=== PATIENT | male | born 1965 | race Caucasian/White ===

== ENCOUNTER 2016-10-25 22:39 | Inpatient (IN) | payer MEDICARE, MEDICAID ==
[~2016-10-25] VITALS: Ht 167.6 cm; Wt 89.0 kg
[~2016-10-25 22:39] MED LIST: METF500T4 PO; OLAN7.5T2 PO
[2016-10-25] MEDS ORDERED: ZIPR80CA2 PO (23:04)
[2016-10-25] MEDS ORDERED: ZOLPIDEM TARTRATE 10 MG TABLET PO PRN (23:30)
[2016-10-25] MEDS ORDERED: LORazepam 2 MG TABLET PO PRN (23:30)
[2016-10-25] MEDS ORDERED: HALOPERIDOL 5 MG TABLET PO PRN (23:30)
[2016-10-25 23:38] LABS: BASOPHILS % (AUTO) 0.4 % (0.0-2.0); EOSINOPHILS % (AUTO) 5.9 % (1.0-6.0); HEMATOCRIT 42.5 % (41-53); HEMOGLOBIN 13.8 g/dL (13.5-17.5); LYMPHOCYTES # (AUTO) 2.7 K/uL (1.0-4.8); LYMPHOCYTES % (AUTO) 29.1 % (22.0-44.0); MEAN CORPUSCULAR HEMOGLOBIN 29.1 pg (26.0-34.0); MEAN CORPUSCULAR HGB CONC 32.5 G/dL (31.0-37.0); MEAN CORPUSCULAR VOLUME 90 fL (80-100); MONOCYTES # (AUTO) 0.8 K/uL (0.1-1.0); MONOCYTES % (AUTO) 8.6 % (2.0-9.0); NEUTROPHILS # (AUTO) 5.1 K/uL (1.8-7.7); PLATELET COUNT (AUTO) 265 K/uL (150-450); RED BLOOD CELL COUNT(AUTO) 4.74 MIL/uL (4.50-5.90); RED CELL DISTRIBUTION WIDTH 13.1 % (11.5-14.5); WHITE BLOOD COUNT (AUTO) 9.2 K/uL (4.5-11.0)
[2016-10-25 23:45] LABS: ANION GAP 10 mmol/L (8-16); CALCIUM, TOTAL 8.9 mg/dL (8.8-10.5); CARBON DIOXIDE 27 mmol/L (22-29); CHLORIDE 103 mmol/L (98-107); CREATININE 0.96 mg/dL (0.60-1.30); GLOMERULAR FILTR. RATE CALC > 60 mL/min (>60); SODIUM SERUM 140 mmol/L (136-145); UREA NITROGEN, BLOOD 10 mg/dL (7-18)
[2016-10-25 23:51] LABS: ALANINE AMINOTRANSFERASE 29 U/L (12-78); ASPARTATE AMINOTRANSFERASE 15 U/L (15-37); BILIRUBIN,TOTAL 0.3 mg/dL (0.1-1.0); TOTAL PROTEIN, SERUM 7.9 g/dL (6.4-8.2)
[2016-10-26 02:02] VITALS: BP 144/91
[2016-10-26] MEDS ORDERED: -PHARMACY VACCINE NOTE- MISC ONE ×2 (03:45)
[2016-10-26 03:46] LABS: APPEARANCE,URINE CLEAR (CLEAR); GLUCOSE, URINE (UA) >=1000 mg/dL (NEGATIVE); KETONES,URINE NEGATIVE (NEGATIVE); LEUKOCYTE ESTERASE ,URINE NEGATIVE (NEGATIVE); OCCULT BLOOD,URINE NEGATIVE (NEGATIVE); PROTEIN,URINE NEGATIVE (NEGATIVE)
[2016-10-26 03:47] LABS: ADD UA MICROSCOPIC YES
[2016-10-26 04:26] LABS: RBC,URINE 0-2 /HPF (0-2); SQUAMOUS EPITHELIAL CELL,UR Rare /LPF (None Seen); WBC,URINE 0-2 /HPF (0-5)
[2016-10-26] MEDS ORDERED: DEXTROSE 50%-WATER 25 GM/50 ML SYRINGE IVP PRN (07:30)
[2016-10-26 07:32] LABS: GLUCOSE,POINT OF CARE 139 MG/DL (70-110)
[2016-10-26 08:23] VITALS: BP 110/75
[2016-10-26] MEDS: MetFORMIN HCL 500 MG TABLET PO SCH ×2 (09:20→17:17)
[2016-10-26] MEDS ORDERED: OLAN10TA3 PO (11:01)
[2016-10-26] MEDS: OLANZapine 10 MG TABLET PO SCH ×2 (11:28→20:29)
[2016-10-26 16:02] VITALS: BP 136/74
[2016-10-26 17:22] LABS: GLUCOSE,POINT OF CARE 137 MG/DL (70-110)
[2016-10-26 21:32] LABS: GLUCOSE,POINT OF CARE 182 MG/DL (70-110)
[2016-10-26] MEDS: INSULIN ASPART 100 UNITS/ML SQ PRN (22:22)
[2016-10-26] MEDS ORDERED: IBUPROFEN 400 MG TABLET PO PRN (22:30)
[2016-10-26] MEDS ORDERED: ACETAMINOPHEN 325 MG TABLET PO PRN (22:30)
[2016-10-27 06:17] LABS: GLUCOSE,POINT OF CARE 159 MG/DL (70-110)
[2016-10-27 06:23] LABS: ALANINE AMINOTRANSFERASE 24 U/L (12-78); ALBUMIN 3.6 g/dL (3.4-5.0); ANION GAP 6 mmol/L (8-16); ASPARTATE AMINOTRANSFERASE 13 U/L (15-37); BILIRUBIN,TOTAL 0.3 mg/dL (0.1-1.0); CALCIUM, TOTAL 8.7 mg/dL (8.8-10.5); CARBON DIOXIDE 29 mmol/L (22-29); CHLORIDE 104 mmol/L (98-107); CHOL/HDL RATIO 3.8 (4.2-7.3); CREATININE 0.88 mg/dL (0.60-1.30); GLOMERULAR FILTR. RATE CALC > 60 mL/min (>60); POTASSIUM 4.1 mmol/L (3.5-5.1); SODIUM SERUM 139 mmol/L (136-145); TOTAL PROTEIN, SERUM 7.3 g/dL (6.4-8.2); UREA NITROGEN, BLOOD 12 mg/dL (7-18)
[2016-10-27 06:29] LABS: HEMOGLOBIN A1C 6.9 % (4.5-6.2)
[2016-10-27] MEDS: MetFORMIN HCL 500 MG TABLET PO SCH ×2 (07:00→17:44)
[2016-10-27] MEDS: INSULIN ASPART 100 UNITS/ML SQ PRN ×3 (07:06→21:19)
[2016-10-27] MEDS: OLANZapine 10 MG TABLET PO SCH ×2 (08:16→21:01)
[2016-10-27 09:32] VITALS: BP 126/93
[2016-10-27 12:37] LABS: GLUCOSE,POINT OF CARE 159 MG/DL (70-110)
[2016-10-27 16:16] VITALS: BP 126/79
[2016-10-27 17:12] LABS: GLUCOSE,POINT OF CARE 130 MG/DL (70-110)
[2016-10-27 21:07] LABS: GLUCOSE COMMENT 1 Received Meds; GLUCOSE,POINT OF CARE 144 MG/DL (70-110)
[2016-10-28 06:41] LABS: GLUCOSE,POINT OF CARE 119 MG/DL (70-110)
[2016-10-28] MEDS: MetFORMIN HCL 500 MG TABLET PO SCH ×2 (06:58→17:23)
[2016-10-28] MEDS: INSULIN ASPART 100 UNITS/ML SQ PRN ×3 (07:04→22:29)
[2016-10-28 08:09] VITALS: BP 132/85
[2016-10-28] MEDS: OLANZapine 10 MG TABLET PO SCH ×2 (08:18→20:57)
[2016-10-28 11:52] LABS: GLUCOSE,POINT OF CARE 135 MG/DL (70-110)
[2016-10-28 16:00] VITALS: BP 130/73
[2016-10-28 16:26] LABS: GLUCOSE,POINT OF CARE 181 MG/DL (70-110)
[2016-10-28 21:02] LABS: GLUCOSE,POINT OF CARE 153 MG/DL (70-110)
[2016-10-29 05:53] LABS: GLUCOSE,POINT OF CARE 136 MG/DL (70-110)
[2016-10-29] MEDS: MetFORMIN HCL 500 MG TABLET PO SCH ×2 (07:01→17:06)
[2016-10-29] MEDS: INSULIN ASPART 100 UNITS/ML SQ PRN ×3 (07:07→17:20)
[2016-10-29 08:30] VITALS: BP 131/90
[2016-10-29] MEDS: OLANZapine 10 MG TABLET PO SCH ×2 (09:37→21:16)
[2016-10-29 13:06] LABS: GLUCOSE,POINT OF CARE 207 MG/DL (70-110)
[2016-10-29 17:07] LABS: GLUCOSE COMMENT 1 Received Meds; GLUCOSE,POINT OF CARE 154 MG/DL (70-110)
[2016-10-29 17:13] VITALS: BP 119/79
[2016-10-30 05:46] LABS: GLUCOSE,POINT OF CARE 137 MG/DL (70-110)
[2016-10-30] MEDS: MetFORMIN HCL 500 MG TABLET PO SCH ×2 (06:38→17:32)
[2016-10-30 08:07] VITALS: BP 144/90
[2016-10-30] MEDS: OLANZapine 10 MG TABLET PO SCH ×2 (08:27→21:01)
[2016-10-30 11:17] LABS: GLUCOSE,POINT OF CARE 127 MG/DL (70-110)
[2016-10-30 16:00] VITALS: BP 130/93
[2016-10-30 16:56] LABS: GLUCOSE,POINT OF CARE 124 MG/DL (70-110)
[2016-10-30 21:01] LABS: GLUCOSE COMMENT 1 Received Meds; GLUCOSE,POINT OF CARE 150 MG/DL (70-110)
[2016-10-30] MEDS: INSULIN ASPART 100 UNITS/ML SQ PRN (21:01)
[2016-10-31 05:22] LABS: GLUCOSE,POINT OF CARE 129 MG/DL (70-110)
[2016-10-31] MEDS: MetFORMIN HCL 500 MG TABLET PO SCH ×2 (06:32→17:21)
[2016-10-31 08:38] VITALS: BP 155/89
[2016-10-31] MEDS: OLANZapine 10 MG TABLET PO SCH ×2 (09:32→20:57)
[2016-10-31] MEDS: INSULIN ASPART 100 UNITS/ML SQ PRN ×3 (11:19→22:07)
[2016-10-31 11:33] LABS: GLUCOSE COMMENT 1 Received Meds; GLUCOSE,POINT OF CARE 171 MG/DL (70-110)
[2016-10-31 17:00] VITALS: BP 131/77
[2016-10-31 17:12] LABS: GLUCOSE COMMENT 1 Received Meds; GLUCOSE,POINT OF CARE 179 MG/DL (70-110)
[2016-10-31 21:52] LABS: GLUCOSE,POINT OF CARE 158 MG/DL (70-110)
[2016-11-01 05:42] LABS: GLUCOSE,POINT OF CARE 166 MG/DL (70-110)
[2016-11-01] MEDS: MetFORMIN HCL 500 MG TABLET PO SCH ×2 (06:44→17:21)
[2016-11-01] MEDS: INSULIN ASPART 100 UNITS/ML SQ PRN ×4 (06:46→20:27)
[2016-11-01 08:00] VITALS: BP 127/81
[2016-11-01] MEDS: OLANZapine 10 MG TABLET PO SCH ×2 (09:06→20:26)
[2016-11-01] MEDS: AmLODIPine BESYLATE 2.5 MG TABLET PO SCH (09:06)
[2016-11-01 11:47] LABS: GLUCOSE,POINT OF CARE 128 MG/DL (70-110)
[2016-11-01 16:32] LABS: GLUCOSE COMMENT 1 Received Meds; GLUCOSE,POINT OF CARE 184 MG/DL (70-110)
[2016-11-01 20:31] LABS: GLUCOSE COMMENT 1 Received Meds; GLUCOSE,POINT OF CARE 159 MG/DL (70-110)
[2016-11-01 21:38] VITALS: BP 135/86
[2016-11-02 05:53] LABS: GLUCOSE,POINT OF CARE 115 MG/DL (70-110)
[2016-11-02] MEDS: MetFORMIN HCL 500 MG TABLET PO SCH (06:54)
[2016-11-02] MEDS: AmLODIPine BESYLATE 2.5 MG TABLET PO SCH (09:12)
[2016-11-02] MEDS: OLANZapine 10 MG TABLET PO SCH (09:13)
[2016-11-02 10:11] VITALS: BP 145/84
[2016-11-02] MEDS ORDERED: METF500T4 PO (10:57)
[2016-11-02] MEDS ORDERED: AMLO2.5T PO (10:58)
[2016-11-02] MEDS: INSULIN ASPART 100 UNITS/ML SQ PRN (11:40)
[2016-11-02 11:42] LABS: GLUCOSE,POINT OF CARE 141 MG/DL (70-110)
== END 2016-11-02 14:22 | disposition home or self-care (01) | DRG 885 ==
LOC: EMS 22:40 → 3EC 10-26 00:07 → 3EI 10-30 09:50
PROVIDERS: ADMIT Psychiatry & Neurology Child & Adolescent Psychiatry; ATTEND Psychiatry & Neurology Child & Adolescent Psychiatry
DX: F20.0 Paranoid schizophrenia (principal); E11.9 Type 2 diabetes mellitus without complications; I10 Essential (primary) hypertension; Z79.899 Other long term (current) drug therapy; Z79.84 Long term (current) use of oral hypoglycemic drugs
CPT/HCPCS: 82962; 83036; 99285; G0480